=== PATIENT | male | born 1935 | race Caucasian/White ===

== ENCOUNTER 2016-10-05 13:42 | Outpatient (CLI) | payer MEDICARE, OTHER | END 2016-10-05 13:43 | disposition home or self-care (01) | DX: R07.82 Intercostal pain (principal); M54.5 Low back pain ==

== ENCOUNTER 2016-11-09 08:48 | Outpatient (CLI) | payer MEDICARE, OTHER | END 2016-11-09 08:49 | disposition home or self-care (01) | DX: E11.9 Type 2 diabetes mellitus without complications (principal); Z79.899 Other long term (current) drug therapy ==

== ENCOUNTER 2016-11-17 09:06 | Outpatient (CLI) | payer MEDICARE, OTHER | END 2016-11-17 09:07 | disposition critical access hospital (66) | DX: G81.91 Hemiplegia, unspecified affecting right dominant side (principal) | CPT/HCPCS: A0425; A0429 ==

== ENCOUNTER 2016-11-24 09:56 | Outpatient (CLI) | payer MEDICARE | END 2016-11-24 09:57 | disposition hospice, home (50) | DX: Z74.01 Bed confinement status (principal) | CPT/HCPCS: A0425; A0428 ==